=== PATIENT | female | born 1955 | race Two or more races ===

== ENCOUNTER 2018-05-04 15:05 | Emergency (ER) | payer MEDICAID ==
[~2018-05-04] VITALS: Ht 160 cm; Wt 113.4 kg
[2018-05-04] MEDS ORDERED: SODIUM CHLORIDE 0.9% 1,000 ML IVB ONE (15:43)
[2018-05-04] MEDS ORDERED: NALBUPHINE HCL 10 MG/1ml INJECTION IV ONE (15:45)
[2018-05-04] MEDS ORDERED: PROMETHAZINE HCL 25 MG/ML 1ML IV PRN (15:45)
[2018-05-04 15:52] LABS: Basophils # (auto) 0 uL; Basophils % (auto) 0.3 % (0.0-2.0); Eosinophils # (auto) 0 uL; Eosinophils % (auto) 0.1 % (0.0-7.0); Hematocrit 46.4 % (36.0-46.0); Lymphocytes # (auto) 1.3 uL; Lymphocytes % (auto) 13.8 % (10.0-50.0); Mean Corpuscular Hemoglobin 31.8 pg (28.0-32.0); Mean Corpuscular Hgb Conc. 34.6 g/dL (32.0-36.0); Monocytes # (auto) 0.4 uL; Monocytes % (auto) 4.3 % (0.0-12.0); Neutrophils # (auto) 7.7 uL; Neutrophils % (auto) 81.5 % (37.0-80.0); Nucleated Red Blood Cells % 0.1 %; Platelet Count (auto) 299 10^3/uL (140-450); Red Blood Cells 5.04 10^6/uL (4.0-5.20); Red Cell Distribution Width 13.7 % (11.8-14.3); White Blood Cell 9.4 10^3/uL (4.4-10.8)
[2018-05-04 16:15] LABS: Alanine Aminotransferase 41 U/L (13-56); Albumin 4.2 g/dL (3.4-5.0); Alkaline Phosphatase 68 U/L (45-117); Anion Gap 11 (5-15); Aspartate Aminotransferase 16 U/L (15-37); BUN/Creatinine Ratio 14.4; Bilirubin, Total 0.7 mg/dL (0.2-1.0); Blood Urea Nitrogen 15 mg/dL (7-18); Carbon Dioxide 23 mmol/L (21-32); Chloride 104 mmol/L (98-107); GFR African American 70 mL/min; GFR Non-African American 57 mL/min; Glucose 176 mg/dL (74-106); Magnesium 2.2 mg/dL (1.6-2.6); Potassium 3.4 mmol/L (3.5-5.1); Sodium 138 mmol/L (136-145); Total Protein 8.4 g/dL (6.4-8.2)
[2018-05-04 16:30] VITALS: BP 164/84
[2018-05-04 17:47] LABS: Urine Bacteria NONE SEEN /hpf (None Seen); Urine Blood 1+ /uL (Negative); Urine Mucus FEW (None Seen); Urine Specific Gravity 1.031 (1.001-1.035); Urine WBC 4 /hpf (0 - 5)
== END 2018-05-04 18:58 | disposition home or self-care (01) ==
LOC: ER 15:12
DX: K52.9 Noninfective gastroenteritis and colitis, unspecified (principal); I10 Essential (primary) hypertension; E11.65 Type 2 diabetes mellitus with hyperglycemia; K90.49 Malabsorption due to intolerance, not elsewhere classified; E87.6 Hypokalemia; J44.9 Chronic obstructive pulmonary disease, unspecified; I25.2 Old myocardial infarction; F17.210 Nicotine dependence, cigarettes, uncomplicated; Z95.1 Presence of aortocoronary bypass graft; Z85.53 Personal history of malignant neoplasm of renal pelvis
CPT/HCPCS: 36415; 80053; 81001; 83690; 83735; 84443; 84484; 85025; 93005; 96361; 96374; 96375; 99285; J2300; J2550; J7030